=== PATIENT | female | born 1970 | race African-American/Black ===

== ENCOUNTER → 2021-06-24 | Outpatient (CLI) | payer OTHER ==
--- NOTE | 2021-06-25 11:44 | RAD ---
INDICATION: 50 years of age asymptomatic female patient presents for screening mammography. No person al or family history of breast cancer. TECHNIQUE: Full field craniocaudal and mediolateral oblique images of both breasts were obtained usi ng digital technique with tomosynthesis and also analyzed with computer-aided detection software. COMPARISON: This is a baseline examination. . BREAST COMPOSITION: Category C: The breast tissue is heterogeneously dense, which could obscure detec tion of small masses. FINDINGS: Right breast: Asymmetry in the superior right breast, 5.4 cm deep to the nipple appreciated on the ML O projection. This likely terminates outside the field of view on the CC projection. No suspicious ca lcifications or architectural distortion. Left breast No suspicious masses, microcalcifications or architectural distortion is present to sugge st malignancy in either breast. The visualized axillae are unremarkable. IMPRESSION: Indeterminate asymmetry in the superior right breast, middle to posterior depth junction. Additional evaluation with diagnostic right breast mammogram with spot compression. Additional evalu ation with targeted right breast ultrasound may also be performed. RECOMMENDATION: The patient will be contacted to return for additional imaging and a supplemental rep ort will follow. BIRADS 0: INCOMPLETE - NEED ADDITIONAL IMAGING EVALUATION AND/OR PRIOR MAMMOGRAMS FOR COMPARISON. This study was interpreted with the benefit of Computerized Aided Detection (CAD). ?Your patient's mammogram demonstrates that she has dense breast tissue (breast density category C or D), which could hide abnormalities, and if she has other risk factors for breast cancer that have be en identified, she might benefit from supplemental screening tests that may be suggested by you as he r ordering physician. Dense breast tissue, in and of itself, is a relatively common condition. Theref ore, this information is not provided to cause undue concern, but rather to raise your awareness and to promote discussion with your patient regarding the presence of other risk factors, in addition to dense breast tissue. Your patient's mammography results will be sent to her. Patient information is entered into the reminder system with a target due date for the next screening mammogram. Mammography is the most sensitive method for finding small breast cancers, but it does not detect the m all and is not a substitute for careful clinical examination. A negative mammogram does not negate a clinically suspicious finding and should not result in delay in biopsying a clinically suspicious a bnormality. "Our facility is accredited by the [employer] Mammography [employer]." Electronically signed by: Aryan Fitch DO (06/25/2021 11:42 AM) [facility]
== END ==
LOC: MAMMO 15:48
PROVIDERS: ATTEND Nurse Practitioner Family
DX: Z12.31 Encounter for screening mammogram for malignant neoplasm of breast (principal)
CPT/HCPCS: 77063; 77067

== ENCOUNTER → 2021-07-22 | Outpatient (CLI) | payer OTHER ==
--- NOTE | 2021-07-22 15:03 | RAD ---
EXAM: Right breast diagnostic with tomosynthesis; right breast sonogram. HISTORY: 50-year-old female presents for evaluation of asymmetry within the right breast demonstrated on a screening mammogram dated 06/24/2021. TECHNIQUE: Full-field digital tomosynthesis and spot compression images of the right breast are obtai cyndi. Sonographic imaging targeted to sites of mammographic asymmetry was also performed. COMPARISON: 06/24/2021 BREAST PARENCHYMAL DENSITY: Level C - Heterogeneously dense. FINDINGS: The asymmetry of concern within the right breast appears to resolve with additional mammogr aphic images. There is no convincing mass, architectural distortion or suspicious calcification. Sonographic imaging of the right breast targeted to the site of prior asymmetry was performed. There is a 7 mm noncircumscribed oval hypoechoic lesion at the 12:00 position 3 cm from the nipple. This ap pears to blend with surrounding parenchyma on cine clip images. This is not associated with internal blood flow or posterior shadowing. The sonographic appearance favors a benign fibrocystic etiology. N o additional lesion is seen. IMPRESSION: 1. No persistent suspicious mammographic finding. 2. 7 mm suspected benign fibrocystic lesion at the 12:00 position of the right breast 3 cm from the n ipple. Sonographic follow-up in 6 months is recommended to confirm benignity. 3. BI-RADS Category 3: Probably benign finding(s). Short term follow up with a right breast sonogram in 6 months is recommended. If your mammogram demonstrates that you have dense breast tissue, which could hide abnormalities, and if you have other risk factors for breast cancer that have been identified, you might benefit from s upplemental screening tests that may be suggested by your ordering physician. Dense breast tissue, i n and of itself, is a relatively common condition. This information is not provided to cause undue c oncern, but rather to raise your awareness and to promote discussion with your physician regarding th e presence of other risk factors, in addition to dense breast tissue. A report of your mammography re sults will be sent to you and your physician. You should contact your physician if you have any ques tions or concerns regarding this report. Mammography is a sensitive method for finding small breast cancers, but it does not detect them all a nd is not a substitute for careful clinical examination. A negative mammogram does not negate a clin ically suspicious finding and should not result in delay in biopsying a clinically suspicious abnorma lity. PQRS compliance statement - Patient information was entered into a reminder system with a target due date for the next mammogram. "Our facility is accredited by the [employer] Mammography [employer]." Electronically signed by: Cristina Barbosa MD (07/22/2021 3:01 PM) [id number]
== END ==
LOC: MAMMO 13:43
PROVIDERS: ATTEND Nurse Practitioner Family
DX: N64.89 Other specified disorders of breast (principal)
CPT/HCPCS: 76641; 77065